=== PATIENT | female | born 1950 | race Caucasian/White ===

== ENCOUNTER 2018-11-06 12:43 | Emergency (ER) | payer MEDICARE, OTHER ==
[~2018-11-06] VITALS: Ht 160 cm; Wt 97.7 kg
[2018-11-06 12:52] VITALS: BP 127/80
[2018-11-06] MEDS ORDERED: DOXY100C43 PO (13:42)
[2018-11-06] MEDS ORDERED: TETanus/Pertussis (Acell)/Diphther VAC/PF (Tdap-Adult) 0.5ml syringe IMVAC ONE (13:50)
== END 2018-11-06 13:57 | disposition home or self-care (01) ==
LOC: ER 12:44
DX: S61.211A Laceration without foreign body of left index finger without damage to nail, initial encounter (principal); Z88.0 Allergy status to penicillin; Z88.2 Allergy status to sulfonamides; W31.1XXA Contact with metalworking machines, initial encounter; Y93.89 Activity, other specified; Y92.89 Other specified places as the place of occurrence of the external cause; Y99.9 Unspecified external cause status
CPT/HCPCS: 73140; 90471; 90715; 99283

== ENCOUNTER 2018-12-10 08:06 | Emergency (ER) | payer MEDICARE ==
[~2018-12-10] VITALS: Ht 160 cm; Wt 97.0 kg
[2018-12-10 08:09] VITALS: BP 124/46
[2018-12-10] MEDS ORDERED: proparacaine 0.5% ophthalmic drops 15ml EACHEYE STA (08:39)
[2018-12-10] MEDS ORDERED: erythromycin ophthalmic ointment 1gm tube RIGHTEYE ONE (08:55)
== END 2018-12-10 09:16 | disposition home or self-care (01) ==
LOC: ER 08:06
DX: H57.89 Other specified disorders of eye and adnexa (principal); E03.9 Hypothyroidism, unspecified; Z90.49 Acquired absence of other specified parts of digestive tract; Z88.0 Allergy status to penicillin; Z88.2 Allergy status to sulfonamides; Z91.018 Allergy to other foods
CPT/HCPCS: 99283